=== PATIENT | female | born 1955 | race Caucasian/White ===

== ENCOUNTER 2017-02-15 10:41 | Outpatient (CLI) | payer MEDICAID ==
[2017-02-19 13:37] LABS: TEST RESULT REPORT (())
== END 2017-02-15 10:42 | disposition home or self-care (01) ==
LOC: LAB.R 10:41
PROVIDERS: ATTEND Nurse Practitioner Family
DX: A60.9 Anogenital herpesviral infection, unspecified (principal)
CPT/HCPCS: 81599; 87255

== ENCOUNTER 2017-03-23 10:21 | Outpatient (CLI) | payer MEDICAID ==
--- NOTE | 2017-03-24 19:40 | Mammography Report ---
DIGITAL SCREENING MAMMOGRAM: 03/23/2017 CLINICAL INDICATION: A 61-year-old for baseline. TECHNIQUE: Routine CC and MLO projections as well as bilateral laterally exaggerated craniocaudal vi ews were obtained of the breasts. The breasts demonstrate scattered fibroglandular densities bilaterally. No suspicious masses, cluste red microcalcifications, or regions of architectural distortion are identified. IMPRESSION: NEGATIVE EXAMINATION. RECOMMENDATION: ROUTINE ANNUAL SCREENING UNLESS OTHERWISE CLINICALLY INDICATED. BIRADS CATEGORY: 1, NEGATIVE. STANDARD QUALIFYING STATEMENTS 1. This examination was reviewed with the aid of Computed-Aided Detection (CAD). 2. A negative or benign imaging report should not delay biopsy if clinically suspicious findings are present. Consider surgical consultation if warranted. More than 5% of cancers are not identified b y imaging. 3. Dense breasts may obscure an underlying neoplasm. JOB #: [id number] EXT JOB #:[id number]
== END 2017-03-23 10:22 | disposition home or self-care (01) ==
LOC: DI.S 10:21
PROVIDERS: ATTEND Nurse Practitioner Family
DX: Z12.31 Encounter for screening mammogram for malignant neoplasm of breast (principal)
CPT/HCPCS: 77067

== ENCOUNTER 2022-02-03 08:00 | Outpatient (CLI) | payer MEDICAID ==
[2022-02-03 23:07] LABS: BACTERIAL VAGINOSIS DNA NEGATIVE (NEGATIVE); CANDIDA GLABRATA DNA NEGATIVE (NEGATIVE); CANDIDA GROUP DNA NEGATIVE (NEGATIVE); CANDIDA KRUSEI DNA NEGATIVE (NEGATIVE); TRICHOMONAS VAGINALIS DNA NEGATIVE (NEGATIVE)
== END 2022-02-03 23:59 | disposition home or self-care (01) ==
LOC: LAB.WC 08:00
PROVIDERS: ATTEND Nurse Practitioner
DX: R21 Rash and other nonspecific skin eruption (principal)
CPT/HCPCS: 81514; 87252

== ENCOUNTER 2022-02-17 11:18 | Outpatient (CLI) | payer MEDICARE ==
--- NOTE | 2022-02-17 17:14 | Ultrasound Report ---
PROCEDURE: Pelvic Limited or F/U INDICATIONS: GROIN MASS TECHNIQUE: Real-time transabdominal scanning was performed of the left groin, with image documentation. COMPARISON: None. FINDINGS: Limited ultrasound examination of left inguinal region shows heterogeneously hypoechoic structure wit h internal debris and peripheral vascularity. This structure measures 7.1 x 3.1 x 3.6 cm in size. No other soft tissue mass or fluid collection is seen. IMPRESSION: Complex cystic structure within left inguinal canal measures 7.1 x 3.1 x 3.6 cm in size with peripher al vascularity concerning for organizing hematoma versus abscess collection versus large necrotic lym ph node. Clinical and sonographic follow-up is recommended. The appearance is not consistent with pse udoaneurysm. Reviewed by: Campos Bhatia MD on 02/17/2022 5:13 PM PDT Approved by: Campos Bhatia MD on 02/17/2022 5:13 PM PDT Station ID: [id number]
== END 2022-02-17 11:19 | disposition home or self-care (01) ==
LOC: DI 11:18
PROVIDERS: ATTEND Nurse Practitioner
DX: R19.04 Left lower quadrant abdominal swelling, mass and lump (principal)

== ENCOUNTER 2022-04-30 10:17 | Day surgery (SDC) | payer MEDICARE ==
[2022-04-30] MEDS ORDERED: LACTATED RINGERS 1,000 ML IV ONE (10:37)
--- NOTE | 2022-04-30 12:06 | ANESTHESIA ---
Pre-Anesthesia VS, & Labs - Diagnosis VULVAR CANCER - Procedure PORTACATH PLACEMENT Vital Signs: Temp Pulse Resp BP Pulse Ox O2 Flow Rate 37.1 C 110 H 18 125/80 100 0 04/30/22 10:38 04/30/22 10:38 04/30/22 10:38 04/30/22 10:38 04/30/22 10:38 04/30/22 10:38 Height: 5 ft 7 in Weight (kg): 75.3 kg Body Mass Index: 25.9 BMI Classification: Overweight - NPO >8 hours - Is Patient ?: No Home Medications and Allergies Ibuprofen 200 mg PO BID 04/26/22 Naproxen Sodium [Aleve] 220 mg PO BID 04/26/22 traMADol [Ultram] 50 mg PO Q8H PRN 04/27/22 Allergies/Adverse Reactions: Allergies Allergy/AdvReac Type Severity Reaction Status Date / Time No Known Drug Allergies Allergy Verified 04/26/22 10:07 Anes History & Medical History - Anesthetic History Anesthesia Complications: reports: No previous complications Family history of Anesthesia Complications: Denies Family history of Malignant Hyperthermia: Denies - Medical History Cardiovascular: reports: None Pulmonary: reports: None Gastrointestinal: reports: None Urinary: reports: None Neuro: reports: None Musculoskeletal: reports: Osteoarthritis (KNEE) Endocrine/Autoimmune: reports: None Blood Disorders: reports: None Skin: reports: None Smoking Status: Never smoker Psychosocial: reports: No issues indicated History of Cancer?: Yes - Surgical History Eyes Ears Nose Throat (EENT): reports: Other (PARATHYROIDECTOMY - 1979) Gynecologic: reports: section Exam General: Alert, Oriented x3, Cooperative, No acute distress Dental: WNL, Poor dentition Mouth Openin Fingerbreadth Neck Mobility: Normal Mallampati classification: II Respiratory: Lungs clear Mental/Cognitive Status: Alert/Oriented X3 Cognitive Status: Within normal limits Plan Anesthesia Type: General Consent for Procedure(s) Verified and Reviewed: Yes Code Status: Attempt Resuscitation ASA classification: 2-Mild systemic disease Is this case an emergency?: No
[2022-04-30] MEDS ORDERED: PROPOFOL 500 MG/50 ML 500 MG/50 ML VIAL ONE (12:26)
[2022-04-30] MEDS ORDERED: MIDAZOLAM 2 MG/2 ML VIAL ONE (12:31)
[2022-04-30] MEDS ORDERED: LIDOCAINE MPF 2%-EPI 1:200000 20 ML VIAL ONE (12:33)
[2022-04-30] MEDS ORDERED: BUPIVACAINE 0.25% PF 10 ML VIAL ONE (12:34)
--- NOTE | 2022-04-30 12:42 | HISTORY & PHYSICAL EXAMINATION ---
Chief Complaint - Chief Complaint Chief Complaint: needs chemotherapy port History of Present Illness - History Obtained From Records Reviewed: yes History obtained from: pt Exam Limitations: none - History of Present Illness HPI Comment/Other: hsitory cancer. 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 HEENT: reports: Other (PARATHYROIDECTOMY - 1979) Meds/Allgy - Home Medications Home Medications: Ambulatory Orders Medication Instructions Recorded Confirmed Ibuprofen 200 mg PO BID 04/26/22 04/27/22 Naproxen Sodium [Aleve] 220 mg PO BID 04/26/22 04/27/22 traMADol [Ultram] 50 mg PO Q8H PRN 04/27/22 04/27/22 - Allergies Allergies/Adverse Reactions: Allergies Allergy/AdvReac Type Severity Reaction Status Date / Time No Known Drug Allergies Allergy Verified 04/26/22 10:07 Review of Systems - Other Findings Other Findings: 10 pt ros as above otherwise unremarkable Exam - Vital Signs Vital Signs: Vital Signs x48h Temp Pulse Resp BP Pulse Ox O2 Flow Rate 04/30/22 10:38 37.1 C 110 H 18 125/80 100 0 - Physical Exam General Appearance: positive: No acute distress, Alert Eyes Bilateral: positive: PERRL, EOMI ENT: positive: No signs of dehydration Neck: positive: No JVD, Trachea midline Respiratory: positive: No respiratory distress, Breath sounds nml Cardiovascular: positive: Regular rate & rhythm Abdomen: positive: No distention Neurologic/Psychiatric: positive: Oriented x3 Conclusion/Plan - Problem List (1) Vulvar cancer, carcinoma Conclusion/Plan: plan port placement. parq held and consent obtained
[2022-04-30] MEDS ORDERED: ceFAZolin 1 GM VIAL ONE (13:20)
[2022-04-30] MEDS ORDERED: fentaNYL 100 MCG/2 ML VIAL ONE (13:29)
[2022-04-30] MEDS ORDERED: LIDOCAINE MPF 2%-EPI 1:200000 20 ML VIAL SUBQ ONE ×2 (13:38)
[2022-04-30] MEDS ORDERED: BUPIVACAINE 0.25% PF 10 ML VIAL SUBQ ONE ×2 (13:39)
[2022-04-30] MEDS ORDERED: LACTATED RINGERS 300 ML IV ONE (13:50)
[2022-04-30] MEDS ORDERED: HYDROcod/ACETAM 10 MG/325 MG TABLET PO PRN (13:50)
--- NOTE | 2022-04-30 13:55 | OPERATIVE REPORT ---
Operative Report - General Procedure Date: 04/30/22 Planned Procedure: left subclavian power port placement Pre-Op Diagnosis: vulvar cancer and need for chemotherapy port Procedure Performed: left suclavian power port fluoroscopic guidance Post Op Diagnosis: same - Procedure Note Primary Surgeon: hugh cheung Anesthesia Technique: Local, MAC Pathology: none Drain/Tube Type: Other (none) Indications: as above Findings: good flush and flow. tip at junction of superior vena cava and atrium Complications: none - Other Other Information/Narrative: The patient was properly identified brought to the operating room and placed in supine position. Monitored anesthesia care was given as well as IV sedation. A towel roll was placed under the upper back. The patient was prepped and draped in a sterile fashion and given preoperative antibiotics. Local anesthetic was given. The left subclavian vein was easily accessed first pass with a needle. Guide wire placed and position confirmed. A subcutaneous pocket on the left upper chest was created measuring approximately 2-1/2 cm. Portacatheter tubing was then placed subcutaneous up to the venous access point. The portacatheter tubing was then easily placed with the use of a dilator peel-away sheath. The tubing was aspirated and flushed with saline. Under fluoroscopic guidance the tubing was pulled back to the junction of the atrium and the superior vena cava. The portacatheter aspirated and flushed easily assuring good position. The portacatheter was then cut to size and further assembled. The port was secured to subcutaneous tissue with 2 interrupted 4-0 Prolene sutures. The port again was aspirated and flushed now with heparin. Buried interrupted subdermal 3-0 Vicryl sutures were then placed. Skin was closed with buried interrupted and running 4-0 Monocryl subcuticular suture. Dressing was applied. The patient tolerated the procedure well was awakened and brought to recovery in good condition.
--- NOTE | 2022-04-30 14:04 | ANESTHESIA POST OP EVALUATION ---
Anesthesia Post Eval - Post Anesthesia Eval Vitals: Last Vital Signs Temp 36.4 C L 04/30/22 13:50 Pulse 96 04/30/22 13:50 Resp 16 04/30/22 13:50 BP 125/106 H 04/30/22 13:50 Pulse Ox 96 04/30/22 13:50 O2 Flow Rate 0 04/30/22 10:38 CV Function Including HR & BP: Stable Pain Control: Satisfactory Nausea & Vomiting: Negative Mental Status: Baseline Respiratory Status: Airway Patent Hydration Status: Satisfactory Anesthesia Complications: None
[2022-04-30 14:16] VITALS: BP 118/84
--- NOTE | 2022-04-30 14:37 | XRAY Report ---
PROCEDURE: OR Port-A-Cath INDICATIONS: Port-a-cath placement TECHNIQUE: Intraoperative fluoroscopy for Mediport placement COMPARISON: None. FINDINGS: Left-sided catheter tubing is present. The distal portion courses throughout the right atrium. Subseq uent images demonstrate withdrawal of the catheter with the tip residing at the cavoatrial junction. IMPRESSION: Intraoperative fluoroscopy for Port-A-Cath placement. Reviewed by: Agustina Lane MD on 04/30/2022 2:35 PM PDT Approved by: Agustina Lane MD on 04/30/2022 2:35 PM PDT Station ID: [id number]
== END 2022-04-30 10:18 | disposition home or self-care (01) ==
LOC: SDS 10:17
PROVIDERS: ATTEND Surgery
DX: C51.9 Malignant neoplasm of vulva, unspecified (principal)
CPT/HCPCS: 36561; C1788; J7120

== ENCOUNTER 2022-08-06 03:25 | Outpatient (CLI) | payer MEDICARE | END 2022-08-06 03:26 | disposition critical access hospital (66) | LOC: EMS 03:25 | DX: S09.90XA Unspecified injury of head, initial encounter (principal); K92.0 Hematemesis; W19.XXXA Unspecified fall, initial encounter; Y92.009 Unspecified place in unspecified non-institutional (private) residence as the place of occurrence of the external cause; R10.9 Unspecified abdominal pain | CPT/HCPCS: A0425; A0427 ==

== ENCOUNTER 2022-08-06 04:03 | Emergency (ER) | payer MEDICARE ==
[2022-08-06] MEDS ORDERED: SODIUM CHLORIDE 0.9% 1,000 ML IV STA (04:09)
[2022-08-06] MEDS ORDERED: PANTOPRAZOLE 40 MG VIAL IV STA (04:11)
[2022-08-06 04:22] LABS: BASOPHILS % (AUTO) 0.1 %; EOSINOPHILS % (AUTO) 0.6 %; MEAN CORPUSCULAR HEMOGLOBIN 31.2 pg (27.0-31.0); MEAN CORPUSCULAR HGB CONC 30.9 g/dL (32.0-36.0); MEAN CORPUSCULAR VOLUME 100.9 fL (81.0-99.0); MEAN PLATELET VOLUME 9.3 fL (7.9-10.8); MONOCYTES % (AUTO) 8.4 %; NEUTROPHILS % (AUTO) 78.6 %; PLT - PLATELET COUNT 211 10^3/uL (130-450); RED BLOOD COUNT 1.09 10^6/uL (4.20-5.40); RED CELL DISTRIBUTION WIDTH 15.4 % (12.0-15.0); WHITE BLOOD COUNT 13.7 x10^3/uL (4.8-10.8)
[2022-08-06] MEDS ORDERED: ONDANSETRON 4 MG/2 ML VIAL IVP STA (04:23)
[2022-08-06] MEDS ORDERED: ONDANSETRON 4 MG/2 ML VIAL ONE (04:25)
[2022-08-06 04:28] LABS: HGB - HEMOGLOBIN 3.4 g/dL (12.0-16.0)
[2022-08-06 04:29] LABS: ABNORMAL LYMPHS % (MANUAL) 0 %
[2022-08-06 04:30] LABS: ALBUMIN 2.3 g/dL (3.2-5.5); ALBUMIN/GLOBULIN RATIO 0.7 (1.0-2.2); BILIRUBIN,TOTAL 0.3 mg/dL (0.2-1.0); CALCIUM 8.2 mg/dL (8.5-10.3); CREATININE 1.1 mg/dL (0.4-1.0); POTASSIUM 4.2 mmol/L (3.5-5.0); TOTAL PROTEIN 5.7 g/dL (6.7-8.2)
[2022-08-06 04:43] LABS: BAND NEUTROPHILS % (MANUAL) 1 %; LYMPHOCYTES # (MANUAL) 1.6 10^3/uL (1.5-3.5); LYMPHOCYTES % (MANUAL) 12 %; MONOCYTES # (MANUAL) 0.3 10^3/uL (0.0-1.0); MYELOCYTES % (MANUAL) 3 %; NEUTROPHILS # (MANUAL) 11.4 10^3/uL (1.5-6.6)
[2022-08-06 04:44] LABS: DIFFERENTIAL COMMENT MANUAL DIFFERENTIAL; PLATELET ESTIMATE, MANUAL NORMAL (130-450,000) (NORMAL); PLATELET MORPHOLOGY NORMAL APPEARANCE (NORMAL); WBC MORPHOLOGY (MULTIPLE) NORMAL APPEARANCE (NORMAL)
--- NOTE | 2022-08-06 06:59 | ED Physician Documentation ---
History of Present Illness - Stated complaint Stated Complaint: GLF - Chief complaint Chief Complaint: Neuro - History obtained from History obtained from: Patient, EMS - Additonal information Additional information: The patient is brought to the emergency department by EMS for chief complaint of syncopal episode and head injury. The patient states that she got up out of bed to walk to the bathroom and that is really the last thing she noticed. According to medics, appears that the patient fell to the floor midway between her bed and the bathroom. They report that the patient appears to been doing some bleeding from her mouth and also, has a hematoma on her face. The patient states she does not think she was hurt in any other way. She denies any spinal pain at any level. No rib or shoulder pain. No hip or pelvic pain. The patient states she can move all of her extremities without pain anywhere. The patient also notes that she has been having dark tarry stools for the last couple of days. She also vomited some dark brown material in route, per medics. The patient has a history of stage III vulvar cancer and has been undergoing treatment for this for some time. She is currently on chemotherapy. The patient also takes Eliquis because of a blood clot that she had previously. She has no history of GI bleed prior. Review of Systems Ten Systems: 10 systems reviewed and negative Constitutional: reports: Reviewed and negative Eyes: reports: Reviewed and negative Ears: reports: Reviewed and negative Nose: reports: Reviewed and negative Throat: reports: Reviewed and negative Cardiac: reports: Reviewed and negative Respiratory: reports: Reviewed and negative GI: reports: Nausea, Vomiting, Bloody / black stool : reports: Reviewed and negative Skin: reports: Reviewed and negative Musculoskeletal: reports: Reviewed and negative Neurologic: reports: Generalized weakness, Syncope Psychiatric: reports: Reviewed and negative Endocrine: reports: Reviewed and negative Immunocompromised: reports: Reviewed and negative PD PAST MEDICAL HISTORY - Past Medical History Cardiovascular: None Respiratory: None Neuro: None Endocrine/Autoimmune: None GI: None : None HEENT: Chronic vision loss Psych: None Musculoskeletal: Osteoarthritis (KNEE) Derm: None - Past 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 HEENT: Other (PARATHYROIDECTOMY - 1980) - Present Medications Home Medications: Ambulatory Orders Medication Instructions Recorded Confirmed OLANZapine [Zyprexa] 5 mg PO UD #24 tablet 05/03/22 08/06/22 Ondansetron HCl 4 mg PO Q6HR #30 tablet 05/03/22 08/06/22 Apixaban [Eliquis] 5 mg PO BID #60 tablet 06/11/22 08/06/22 - Allergies Allergies/Adverse Reactions: Allergies Allergy/AdvReac Type Severity Reaction Status Date / Time No Known Drug Allergies Allergy Verified 08/06/22 04:09 - Social History Smoking Status: Never smoker PD ED PE NORMAL - Vitals Vital signs reviewed: Yes - General General: Alert and oriented X 3, No acute distress, Well developed/nourished, Other (Thin female who appears extremely pale.) - HEENT HEENT: PERRL, EOMI, Moist mucous membranes, Dentition benign, Other (Large periorbital hematoma left side, with Much smaller hematoma/contusion of left upper lip. Approximately 1 cm diameter stellate laceration the inner mucosa.) - Neck Neck: Supple, no meningeal sign, No bony TTP - Cardiac Cardiac: RRR, No murmur, Strong equal pulses - Respiratory Respiratory: No respiratory distress, Clear bilaterally - Abdomen Abdomen: Soft, Non tender, Non distended - Derm Derm: Warm and dry, No rash, Other (Extreme pallor, including gingivae.) - Extremities Extremities: No deformity - Neuro Neuro: Alert and oriented X 3 - Psych Psych: Normal mood, Normal affect Results - Vitals Vitals: Vital Signs - 24 hr 08/06/22 08/06/22 08/06/22 04:03 04:39 05:09 Temperature 36.8 C Heart Rate 120 H 123 H 122 H Heart Rate [ Monitoring electrodes] Respiratory 18 15 17 Rate Blood Pressure 101/62 89/71 L 103/68 Blood Pressure [Right Brachial artery] O2 Saturation 95 99 97 08/06/22 08/06/22 08/06/22 05:30 06:00 06:30 Temperature Heart Rate 122 H 122 H 115 H Heart Rate [ Monitoring electrodes] Respiratory 19 20 20 Rate Blood Pressure 106/68 109/68 106/65 Blood Pressure [Right Brachial artery] O2 Saturation 99 100 98 08/06/22 08/06/22 08/06/22 07:00 07:05 07:15 Temperature 36.7 C 36.8 C 36.7 C Heart Rate Heart Rate [ 114 H 117 H 120 H Monitoring electrodes] Respiratory 25 H 15 18 Rate Blood Pressure Blood Pressure 102/68 105/68 108/75 [Right Brachial artery] O2 Saturation 100 100 100 Oxygen O2 Source Room air - Labs Labs: Laboratory Tests 08/06/22 08/06/22 08/06/22 04:10 04:10 04:50 WBC 13.7 H RBC 1.09 L Hgb 3.4 L* Hct 11.0 L* MCV 100.9 H MCH 31.2 H MCHC 30.9 L RDW 15.4 H Plt Count 211 MPV 9.3 Neut # (Auto) Not Reportable Lymph # (Auto) Not Reportable Rogers # (Auto) Not Reportable Eos # (Auto) Not Reportable Baso # (Auto) Not Reportable Absolute Nucleated RBC Not Reportable Total Counted 100 Band Neuts % (Manual) 1 Abnorm Lymph % (Manual) 0 Myelocytes % 3 H Nucleated RBC % Not Reportable Neutrophils # (Manual) 11.4 H Lymphocytes # (Manual) 1.6 Monocytes # (Manual) 0.3 Eosinophils # (Manual) 0.0 Basophils # (Manual) 0.0 Differential Comment MANUAL DIFFERENTIAL WBC Morphology NORMAL APPEARANCE Platelet Estimate NORMAL (130-450,000) Platelet Morphology NORMAL APPEARANCE RBC Morph Micro Appear 2+ ANISOCYTOSIS Sodium 140 Potassium 4.2 Chloride 107 Carbon Dioxide 22 Anion Gap 11.0 BUN 41 H Creatinine 1.1 H Estimated GFR (MDRD) 49 L Glucose 184 H Calcium 8.2 L Total Bilirubin 0.3 AST 18 ALT 16 Alkaline Phosphatase 38 L Total Protein 5.7 L Albumin 2.3 L Globulin 3.4 Albumin/Globulin Ratio 0.7 L Lipase 20 L Blood Type A POSITIVE Antibody Screen NEGATIVE Crossmatch IS Only See Detail - Rads (name of study) CT head Radiology: Final report received, See rad report (Bilateral tiny subarachnoid hemorrhages. No mass-effect.) CT C-spine Radiology: Prelim report reviewed, Critical result, EMP read indepedently, See rad report CT face Radiology: Final report received, See rad report (No facial bone fracture) PD Medical Decision Making - ED course Complexity details: reviewed old records, reviewed results, re-evaluated patient, considered differential, d/w patient, d/w family ED course: The patient was extremely pale and I suspected that she was very anemic and this is likely the reason for her syncope. She obviously had struck her face and given that she was on Eliquis, this was also concern. The patient was sent for CTs of the head face and neck, all of which were unremarkable. Laboratory studies showed the patient to have a hemoglobin of 3.4. Blood was typed, screened, and crossed immediately and patient was started on a transfusion here. She was also given IV Protonix and Zofran. I spoke with [facility] regarding the patient's bilateral small subarachnoid hemorrhages on CT head, and ultimately, the patient was accepted by emergency physician Dr. Armstrong and an ER to ER transfer. The patient was agreeable to this plan. Departure - Departure Disposition: 02 Transfer Acute Care Hosp Clinical Impression: Upper GI bleed, Severe anemia, Syncope and collapse, Subarachnoid hemorrhage Closed head injury Qualifiers: Encounter type: initial encounter Qualified Code(s): S09.90XA - Unspecified injury of head, initial encounter Condition: Critical
[2022-08-06 07:17] VITALS: BP 108/75
--- NOTE | 2022-08-06 08:30 | CT Report ---
PROCEDURE: CERVICAL SPINE WO INDICATIONS: fall/head injury TECHNIQUE: Noncontrast 3 mm thick sections acquired from the skull base to the T4 level. Sagittal and coronal r eformats were then constructed. For radiation dose reduction, the following was used: automated exp osure control, adjustment of mA and/or kV according to patient size. COMPARISON: CT of chest dated 03/13/2022. FINDINGS: Image quality: Excellent. Bones: No fractures or dislocations. Minimal retrolisthesis at C4-5 and C5-6 level is seen. Minimal anterolisthesis at C7-T1 level is also noted. Loss of disc height, degenerative endplate changes and bilateral facet hypertrophic changes are noted at C4-5 through C6-7 levels causing mild central mahi l stenosis and bilateral neural foraminal narrowing most notably at C5-6 level. Visualized superior r ibs are intact. Soft tissues: Prevertebral soft tissues are normal in thickness. No paravertebral hematomas. No ap ical pneumothoraces. 1.1 cm spiculated nodule is noted in lateral left apex not seen on previous gloria dy dated 03/13/2022. IMPRESSION: 1. No acute cervical spine fracture or dislocation. 2. Degenerative disc disease throughout cervical spine most notably at C5-6 level as above. 3. 1.1 cm spiculated nodule in left apex new since 03/13/2022 study concerning for metastatic lung nodu le given patient's history of vulvar cancer. No discrepancies from preliminary reading. Reviewed by: Campos Bhatia MD on 08/06/2022 8:29 AM PST Approved by: Campos Bhatia MD on 08/06/2022 8:29 AM PST Station ID: [id number]
[2022-08-06 08:32] LABS: B. PARAPERTUSSIS- RESP PCR PAN NOT DETECTED; B. PERTUSSIS- RESP PCR PANEL NOT DETECTED; C. PNEUMONIAE- RESP PCR PANEL NOT DETECTED; CORONAVIRUS 229E-RESP PCR NOT DETECTED; CORONAVIRUS HKU1-RESP PCR NOT DETECTED; CORONAVIRUS NL63-RESP PCR NOT DETECTED; CORONAVIRUS OC43-RESP PCR NOT DETECTED; HUMAN METAPNEUMOVIRUS NOT DETECTED; INFLUENZA A- RESP PCR PANEL NOT DETECTED; INFLUENZA B - RESP PCR PANEL NOT DETECTED; M. PNEUMONIAE- RESP PCR PANEL NOT DETECTED; PARAINFLUENZA VIRUS 1 NOT DETECTED; PARAINFLUENZA VIRUS 2 NOT DETECTED; PARAINFLUENZA VIRUS 3 NOT DETECTED; PARAINFLUENZA VIRUS 4 NOT DETECTED; RHINOVIRUS/ENTEROVIRUS NOT DETECTED; RSV- RESP PCR PANEL NOT DETECTED; SARS-CoV-2 -RESP PCR PANEL NOT DETECTED
--- NOTE | 2022-08-06 08:35 | CT Report ---
PROCEDURE: HEAD WO INDICATIONS: fall/head injury TECHNIQUE: Noncontrast 4.5 mm thick angled axial sections acquired from the foramen magnum to the vertex. For r adiation dose reduction, the following was used: automated exposure control, adjustment of mA and/or kV according to patient size. COMPARISON: None. FINDINGS: Image quality: Excellent. CSF spaces: Basal cisterns are patent. No extra-axial fluid collections. Ventricles are normal in size and shape. Brain: Subtle foci of hyperdensities are noted along sulci of left frontal lobe. Similar hyperdensiti es also along sulci of right temporal lobe concerning for subarachnoid hemorrhage. No midline shift. There is volume loss associated with age. Rahman-white matter interface is normal. Skull and face: Large left frontal scalp hematoma and swelling is seen. No gross acute skull fracture is seen. Sinuses: Opacification of bilateral mastoid air cells are noted. Mild mucosal thickening in bilateral maxillary, sphenoid and ethmoid sinuses are seen. IMPRESSION: 1. Suggestion of acute small subarachnoid hemorrhage involving left frontal lobe and right temporal l obe concerning for contusion and contrecoup injury. 2. Left frontal/supraorbital hematoma. No gross acute skull fracture. 3. Opacification of bilateral mastoid sinuses and paranasal sinuses concerning for sinusitis and mast oiditis. No significant discrepancies from preliminary reading. Reviewed by: Campos Bhatia MD on 08/06/2022 8:33 AM PST Approved by: Campos Bhatia MD on 08/06/2022 8:33 AM PST Station ID: [id number]
--- NOTE | 2022-08-06 08:37 | CT Report ---
PROCEDURE: MAXILLOFACIAL WO INDICATIONS: fall/facial inj TECHNIQUE: Noncontrast 1.5 mm thick axial images acquired from the mandible through the frontal sinuses, with co mukund and sagittal reformatting. For radiation dose reduction, the following was used: automated ex posure control, adjustment of mA and/or kV according to patient size. COMPARISON: None. FINDINGS: Image quality: Partially degraded by dental artifact. Bones and teeth: Orbital villar are intact. Sinus villar show no fracture or deformity. Nasal bones and septum are intact. Visualized portions of the mandible demonstrate no fractures or subluxation. Zygomatic arches are intact. Pterygoid plates are intact. Visualized portions of the skull base an d auditory canals are intact. Sinuses: There is mild mucosal thickening within the bilateral ethmoid, maxillary, and right sphenoid sinuses. Bilateral mastoid fluid. Soft tissues: No edema, masses, or fluid collections. No enlarge d lymph nodes. No soft tissue lacerations or debris. Vascular: Visualized vascular structures appear normal in the absence of contrast. Bony vascular fo ramina and canals are intact. IMPRESSION: 1. No fracture. 2. Sinus and mastoid disease. 3. Concordant with preliminary interpretation. Reviewed by: April Alford MD on 08/06/2022 8:35 AM [facility] Approved by: April Alford MD on 08/06/2022 8:35 AM [facility] Station ID: [id number]
== END 2022-08-06 07:43 | disposition short-term general hospital (02) ==
LOC: ED 04:03
DX: R55 Syncope and collapse (principal); S00.83XA Contusion of other part of head, initial encounter; W18.39XA Other fall on same level, initial encounter; Y93.89 Activity, other specified; Y92.003 Bedroom of unspecified non-institutional (private) residence as the place of occurrence of the external cause; S06.6XAA Traumatic subarachnoid hemorrhage with loss of consciousness status unknown, initial encounter; K92.2 Gastrointestinal hemorrhage, unspecified; D64.9 Anemia, unspecified; Z79.01 Long term (current) use of anticoagulants; Z20.822 Contact with and (suspected) exposure to COVID-19
CPT/HCPCS: 36415; 36430; 70450; 70486; 72125; 80053; 83690; 85025; 86850; 86900; 86901; 86920; 87633; 93005; 96361; 96374; 96375; 99283; 99285; P9016